=== PATIENT | male | born 1980 ===

== ENCOUNTER → 2021-02-12 11:36 | Outpatient (CLI) | payer BC, SELFPAY ==
--- NOTE | ~2021-02-12 | US_ITS ---
US abdomen complete INDICATION: Unspecified abdominal pain PROCEDURE: Realtime right upper abdominal ultrasound. COMPARISON: No prior studies for comparison. FINDINGS: The pancreas is normal without focal mass or pancreatic ductal dilation. Liver echotexture is increased, consistent with fatty infiltration. There is normal directional flow in the portal ve in. The gallbladder is normal without stones, gallbladder wall thickening or pericholecystic fluid. Comm on bile duct measures 3 mm. No sonographic Orellana's sign. IMPRESSION: 1: Hepatic steatosis. Reviewed, dictated and finalized at location A. ST[employer]TERER IMPRESSION: 1: Hepatic steatosis.
== END ==
PROVIDERS: PCP Physician Assistant; Visit Provider Physician Assistant
DX: R10.12 Left upper quadrant pain (principal); K76.0 Fatty (change of) liver, not elsewhere classified
CPT/HCPCS: 76700